=== PATIENT | male | born 1965 | race African-American/Black ===

== ENCOUNTER 2024-08-15 06:21 | Observation (INO) | payer BC, SELFPAY ==
[2024-08-15] MEDS ORDERED: Morphine 4 MG/ML VIAL ONE (07:35)
[2024-08-15] MEDS ORDERED: Ondansetron PF 4 MG/2 ML Vial ONE ×2 (07:35→10:24)
[2024-08-15] MEDS ORDERED: Famotidine/PF 20 mg/2ml Vial ONE (07:36)
[2024-08-15 07:40] LABS: #Basophils 0.02 10x3/uL (0.0-0.2); #Eosinophils 0.04 10x3/uL (0.0-0.5); #Monocytes 0.71 10x3/uL (0.0-1.1); #Neutrophils 7.85 10x3/uL (1.5-8.4); %Basophils 0.2 % (0.0-2.0); %Eosinophils 0.4 % (0.0-6.0); %Lymphocytes 11.1 % (18.0-47.0); %Monocytes 7.3 % (0.0-10.0); %Neutrophils 80.7 % (40.0-75.0); Hematocrit 41.1 % (38.8-50.0); Hemoglobin 14.2 g/dL (13.5-17.5); Mean Corpuscular HGB CONC 34.5 g/dL (32.0-36.0); Mean Corpuscular Hemoglobin 31.3 pg (27.0-33.0); Mean Corpuscular Volume 90.7 fL (81.2-95.1); Mean Platelet Volume 9.7 fL (7.4-10.4); Platelet Count 234 10x3/uL (150-450); RBC Distribution Width 13.2 % (11.5-14.5); Red Blood Cell (RBC) Count 4.53 10x6/uL (4.32-5.72); White Blood Cell (WBC) Count 9.7 10x3/uL (3.5-10.5)
[2024-08-15 07:52] LABS: ALT (SGPT) 12 U/L (8-55); AST (SGOT) 16 U/L (5-34); Albumin 4.4 g/dL (3.5-5.0); Alkaline Phosphatase 87 U/L (40-110); Anion Gap 15 mmol/L (10-20); BUN (Urea Nitrogen) 10 mg/dL (8.4-25.7); Bilirubin, Total 0.3 mg/dL (0.2-1.2); Calc. Creatinine Clearance 0 mL/min (70-130); Carbon Dioxide 30 mmol/L (22-29); Chloride 99 mmol/L (98-107); Estimated GFR 69; Globulin 4.2 g/dL (2.4-3.5); Glucose 123 mg/dL (70-105); Lipase 14 U/L (8-78); Potassium 3.7 mmol/L (3.5-5.1); Protein, Total 8.6 g/dL (6.0-8.3); Sodium 140 mmol/L (136-145); Troponin I 0.016 ng/mL (< 0.028)
[2024-08-15] MEDS ORDERED: Piperacillin/Tazobactam 4.5 GM VIAL ONE (09:24)
[2024-08-15 09:29] LABS: Bilirubin Neg (Negative); Blood, Urine 10 (Negative); Clarity Clear (Clear); Glucose, Urine (Dipstick) 50 mg/dL (Negative); Ketone, Urine Negative (Negative); Leukocyte Negative (Negative); Nitrite Negative (Negative); Protein, Urine (Dipstick) 15 mg/dl (Neg-Trace); Specific Gravity, Urine 1.015 (1.005-1.030); Urobilinogen Normal mg/dL (Less than 2)
[2024-08-15 09:40] LABS: Bacteria/HPF Rare-Few HPF (None Seen); CAUTI Indications for Culture Pelvic or flank pain; RBC/HPF 0-3 HPF (0-3); Squamous Epithelial 0-3 HPF (0-3); Urine Culture Reflex No No; WBC/HPF None Seen HPF (0-3)
[2024-08-15] MEDS ORDERED: Bupivacaine/Epinephrine 0.25% 30 ML VIAL ONE (09:55)
[2024-08-15] MEDS ORDERED: Rocuronium Bromide 10 MG/ML (10ML VIAL) ONE (10:24)
[2024-08-15] MEDS ORDERED: Fentanyl 250 MCG/5 ML VIAL ONE (10:24)
[2024-08-15] MEDS ORDERED: Dexamethasone 20 MG/5 ML VIAL ONE (10:24)
[2024-08-15] MEDS ORDERED: SUGAMMADEX SODIUM 200 MG/2 ML VIAL ONE (10:24)
[2024-08-15] MEDS ORDERED: SUCCINYLCHOLINE/SOD CL,ISO/PF 200 MG/10 ML SYRINGE FS ONE (10:24)
[2024-08-15] MEDS ORDERED: Lidocaine 2% PF 5 ML VIAL ONE (10:24)
[2024-08-15] MEDS ORDERED: PROPOFOL 20 ML ONE (10:24)
[2024-08-15] MEDS ORDERED: PHENYLEPHRINE-NS 100 MCG/ML 10 ML SYRINGE ONE (10:26)
[2024-08-15] MEDS ORDERED: ePHEDrine Sulfate 50 MG/10 ML VIAL ONE (10:27)
[2024-08-15] MEDS ORDERED: Glycopyrrolate 0.2 MG/ML 5 ML SYRINGE ONE (11:07)
[2024-08-15] MEDS ORDERED: Ibuprofen 800 MG TAB PO PRN (12:13)
[2024-08-15] MEDS ORDERED: fentaNYL 50 mcg/mL 1 mL Vial ONE ×2 (12:40→12:58)
[2024-08-15] MEDS ORDERED: Labetalol HCl 100 MG/20 ML VIAL ONE (12:47)
[2024-08-15] MEDS ORDERED: HYDROcodone/Acetaminophen 5/325 mg Tablet ONE (13:30)
== END 2024-08-15 13:50 | disposition home or self-care (01) ==
LOC: CSHERS 06:21 → CSHERHOLD 09:11
PROVIDERS: ADMIT Student in an Organized Health Care Education/Training Program; ATTEND Student in an Organized Health Care Education/Training Program
PROC: 0FT44ZZ Resection of Gallbladder, Percutaneous Endoscopic Approach (ICD-10-PCS; principal; 2024-08-15)
DX: K80.10 Calculus of gallbladder with chronic cholecystitis without obstruction (principal); D13.5 Benign neoplasm of extrahepatic bile ducts; F17.200 Nicotine dependence, unspecified, uncomplicated; Z90.89 Acquired absence of other organs; Z88.5 Allergy status to narcotic agent
CPT/HCPCS: 74174; 76705; 80053; 81001; 83690; 84484; 85025; 88304; 93005; 96374; 96375; C1889; G0378; J1100; J2272; J2405; J2543; J2704; J3010; J3490

== ENCOUNTER 2025-07-09 19:39 | Emergency (ER) | payer BC, OTHER, SELFPAY ==
[2025-07-09] MEDS ORDERED: Dexamethasone 10 MG/ML VIAL ONE (21:11)
[2025-07-09] MEDS ORDERED: Ketorolac Tromethamine 30 MG (1 mL) VIAL ONE (21:11)
== END 2025-07-09 20:51 | disposition home or self-care (01) ==
LOC: CSHERS 19:39
DX: S16.1XXA Strain of muscle, fascia and tendon at neck level, initial encounter (principal); X58.XXXA Exposure to other specified factors, initial encounter
CPT/HCPCS: 96372; 99283; J1100; J1885